=== PATIENT | male | born 1965 | race Hispanic/Latino ===

== ENCOUNTER 2017-02-15 02:51 | Emergency (ER) | payer SELFPAY ==
[~2017-02-15] VITALS: Ht 177.8 cm; Wt 82.6 kg
[2017-02-15] MEDS ORDERED: AMLODIPINE5 MG PO (03:07)
[2017-02-15] MEDS ORDERED: LISINOPRIL20 M1 PO (03:08)
[2017-02-15 03:37] LABS: HEMATOCRIT 39.2 % (39.0-50.0); IMMATURE GRANULOCYTES 0.2 % (0.0-1.0); MEAN CELL VOLUME 90.3 fL CALC (80.0-100.0); MEAN CORPUSCULAR HGB CONC 33.2 g/L CALC (32.0-36.0); NEUT# 7.12 thou/uL (1.82-7.42); RED BLOOD COUNT 4.34 mill/uL (4.70-6.10); RED CELL DISTRI WIDTH 12.7 % (11.5-15.5)
[2017-02-15 03:38] LABS: URINE BILIRUBIN - DIPSTICK NEGATIVE (NEGATIVE); URINE BLOOD DIPSTICK MODERATE (NEGATIVE); URINE CLARITY CLEAR; URINE COLOR YELLOW; URINE GLUCOSE - DIPSTICK 100 mg/dL (NEGATIVE); URINE KETONE NEGATIVE (NEGATIVE); URINE LEUK ESTERASE NEGATIVE (NEGATIVE); URINE NITRITE - DIPSTICK NEGATIVE (Negative); URINE PROTEIN - DIPSTICK NEGATIVE (NEG-TRACE); URINE SPECIFIC GRAVITY 1.015; URINE UROBILINOGEN - DIPSTICK 0.2 E.U./dL (0.2)
[2017-02-15 03:46] LABS: URINE WBC 0-2 WBC/hpf (0-5)
[2017-02-15 03:52] LABS: ALBUMIN 4.3 g/dL (3.2-5.0); ALKALINE PHOSPHATASE 59 u/l (38-126); AMYLASE 52 u/l (30-110); BILIRUBIN, TOTAL 0.3 mg/dL (0.0-1.4); BUN 18 mg/dL (9-20); BUN/CREATININE RATIO 17 (12-20 (CALC)); CALCIUM 8.8 mg/dL (8.4-10.2); CARBON DIOXIDE 25 mmol/l (22-30); CHLORIDE 102 mmol/l (95-108); CREATININE 1.1 mg/dL (0.7-1.3); GFR > 60 ML/MIN (>=60 (CALC)); GFR FOR AFR.AMER. > 60 ML/MIN (>=60 (CALC)); GLUCOSE 129 mg/dL (75-110); LIPASE 64 u/l (23-300); SGOT/AST 30 u/l (17-59); SGPT/ALT 35 u/l (21-72); SODIUM 139 mmol/l (137-146)
[2017-02-15 03:53] LABS: ANION GAP 16 (6-22 (CALC)); POTASSIUM 3.9 mmol/l (3.5-5.1)
[2017-02-15] MEDS ORDERED: LORTAB 10-325 M1 TAB PO (05:36)
[2017-02-15] MEDS ORDERED: ZOFRAN ODT4 MG PO (05:36)
[2017-02-15 06:12] VITALS: BP 146/71
== END 2017-02-15 06:12 | disposition home or self-care (01) | DRG 694 ==
LOC: ED 02:51
PROVIDERS: Emergency Medicine
DX: N20.1 Calculus of ureter (principal); I10 Essential (primary) hypertension; F17.210 Nicotine dependence, cigarettes, uncomplicated
CPT/HCPCS: Q9967